=== PATIENT | male | born 1950 | race Caucasian/White ===

== ENCOUNTER → 2018-08-04 | Outpatient (CLI) | payer MEDICARE ==
[~2018-08-04] MED LIST: ATENOLOL AND CH1 TAB PO; CEPHALEXIN500 M1 PO; OMEPRAZOLE40 MG PO; POTASSIUM CITR10 ME1 PO; PRISTIQ100 MG PO; ZOLPIDEM TART10 MG PO
== END | disposition home or self-care (01) ==
LOC: US 06:26
DX: I65.23 Occlusion and stenosis of bilateral carotid arteries (principal); E78.5 Hyperlipidemia, unspecified; I10 Essential (primary) hypertension; R79.82 Elevated C-reactive protein (CRP)

== ENCOUNTER → 2020-06-27 | Outpatient (CLI) | payer MEDICARE | END | disposition home or self-care (01) | LOC: COVID19 02:47 | PROVIDERS: ATTEND Internal Medicine | DX: Z20.828 Contact with and (suspected) exposure to other viral communicable diseases (principal) ==

== ENCOUNTER → 2022-11-19 | Outpatient (CLI) | payer MEDICARE ==
[~2022-11-19] MED LIST changes: +ATENOLOL-CHLOR1 EAC1 PO; +DECADRON6 M1 PO; +FEXOFENADINE H180 M1 PO; +GABAPENTIN400 MG PO; +HYDRALAZINE HYD50 MG PO; +HYDROXYZINE HCL25 MG PO; +OMNICEF300 MG PO; +TEMAZEPAM15 M1 PO; +ZESTRIL,PRINIVIL5 MG PO; +ZITHROMAX500 MG PO
== END ==
LOC: US 01:00
PROVIDERS: ATTEND Nurse Practitioner Primary Care
DX: I65.23 Occlusion and stenosis of bilateral carotid arteries (principal)

== ENCOUNTER → 2023-10-24 | Outpatient (CLI) | payer MEDICARE | LOC: US 10:44 | PROVIDERS: ATTEND Nurse Practitioner | DX: I65.23 Occlusion and stenosis of bilateral carotid arteries (principal) ==

== ENCOUNTER → 2025-06-08 | Outpatient (CLI) | payer MEDICARE | END | disposition home or self-care (01) | LOC: US 03:09 | PROVIDERS: ATTEND Nurse Practitioner | DX: I73.9 Peripheral vascular disease, unspecified (principal); I10 Essential (primary) hypertension; E11.9 Type 2 diabetes mellitus without complications ==

== ENCOUNTER 2025-07-25 11:36 | Emergency (ER) | payer MEDICARE ==
[~2025-07-25] VITALS: Ht 182.8 cm; Wt 102.1 kg
[2025-07-25 11:47] VITALS: BP 151/62
== END 2025-07-25 14:28 | disposition home or self-care (01) ==
LOC: ED 11:36
DX: Z45.2 Encounter for adjustment and management of vascular access device (principal); R68.83 Chills (without fever); Z88.1 Allergy status to other antibiotic agents; Z79.899 Other long term (current) drug therapy; Z96.651 Presence of right artificial knee joint; Z87.891 Personal history of nicotine dependence